=== PATIENT | female | born 1965 | race African-American/Black ===

== ENCOUNTER 2016-12-28 16:28 | Emergency (ER) | payer OTHER ==
[~2016-12-28] VITALS: Ht 162.6 cm; Wt 113.6 kg
[~2016-12-28 16:28] MED LIST: HYDR-3533 PO; IBUP-232 PO; LISI-586 PO; METO50TA PO
[2016-12-28 16:32] VITALS: BP 140/107; PULSE 87; RESP 17; TEMP 98; O2SAT 96
[2016-12-28] MEDS ORDERED: MONT10TA4 PO (17:00)
[2016-12-28] MEDS ORDERED: AMLO5 PO (17:00)
--- NOTE | 2016-12-28 17:01 | PD ---
HPI Chief Complaint: Headache Time Seen by Provider: 16:51 Travel History International Travel<30 days: No Contact w/Intl Traveler<30days: No Traveled to known affect area: No History of Present Illness HPI Patient is a 51-year-old female who presents to ER with c/o of hypertension. Patient reports that she has had history of long-standing hypertension, reports that she follow-up with her primary care doctor yesterday who took her off her of her metoprolol and changed to Norvasc 5 mg. Patient reports that she has been taking Norvasc 5 mg daily since yesterday. Patient reports that during her conversation with her primary care doctor, her primary care doctor reported concerns for possible esophageal cancer. Patient reports that since her discussion about this esophageal cancer, patient was concerned and has been very anxious. Patient reports that she has been having tingling sensation to her arms or legs, patient reports that she feels nervous about her blood pressure as well as her health in general. Patient reports that today she took her blood pressure at home using a small wrist cuff; reports that her blood pressure was 165/135. Patient then went to [facility] and took her blood pressure which was 155/110. Patient reports that she felt she was anxious and came to the emergency room for evaluation. At this time, patient denies any headache or dizziness. Patient denies any vision changes, nausea or vomiting. Patient denies any chest pain or shortness of breath. Patient reports that she just want to have her blood pressure checked and went to find out why she felt tingly sensation all over her body. PFSH Past Medical History Arthritis: Yes Asthma: No Autoimmune Disease: No Heart Rhythm Problems: No Cancer: No Cardiac Catheterization: No Cardiovascular Problems: Yes High Cholesterol: Yes Chemotherapy: No Chest Pain: Yes Congestive Heart Failure: No COPD: No Cerebrovascular Accident: No Diabetes: No Diminished Hearing: No Endocrine: No Fibromyalgia: Yes Gastrointestinal Disorders: No GERD: Yes Genitourinary: No Headaches: Yes Hiatal Hernia: No Hypertension: Yes Immune Disorder: No Implanted Vascular Access Dvce: No Kidney Stones: No Musculoskeletal: No Neurologic: Yes (VERTIGO, FIBROMYALGIA) Psychiatric: No Reproductive: No Respiratory: No Immunizations Current: No Migraines: Yes Myocardial Infarction: No Pneumonia: Yes (CHILDHOOD) Radiation Therapy: No Renal Failure: No Seizures: No Sleep Apnea: No Thyroid Disease: No Ulcer: No ?: Not Menopausal: Yes : 4 Para: 3 Miscarriage: 1 Dilation and Curettage (D&C): Yes Tubal Ligation: Yes Past Surgical History Abdominal Surgery: No AICD: No Arteriovenous Shunt: No Cardiac Surgery: No Section: Yes (X1) Coronary Artery Bypass Graft: No Ear Surgery: No Endocrine Surgery: No Eye Surgery: No Genitourinary Surgery: No Gynecologic Surgery: Yes ( 2000) Insulin Pump: No Joint Replacement: No Neurologic Surgery: No Oral Surgery: No Pacemaker: No Thoracic Surgery: No Other Surgery: Yes Social History Alcohol Use: No Tobacco Use: No Substance Use: No Allergies-Medications (Allergen,Severity, Reaction): Coded Allergies: No Known Allergies (Verified , 12/28/16) Reported Meds & Prescriptions Reported Meds & Active Scripts Active Macrobid (Nitrofurantoin Monoh/Nitrofur Macro) 100 Mg Cap 100 Mg PO BID 10 Days Reported Montelukast (Montelukast Sodium) 10 Mg Tab 10 Mg PO HS Norvasc (Amlodipine Besylate) 5 Mg Tab 5 Mg PO DAILY Review of Systems General / Constitutional: No: Fever, Chills Eyes: No: Visual changes HENT: No: Headaches, Vertigo, Lightheadedness, Sore Throat Cardiovascular: No: Chest Pain or Discomfort Respiratory: No: Shortness of Breath Gastrointestinal: No: Nausea, Vomiting, Diarrhea, Abdominal Pain Genitourinary: No: Dysuria Musculoskeletal: No: Pain Skin: No Rash Neurologic: No: Weakness Psychiatric: Positive: Anxiety, No: Depression Endocrine: No: Polydipsia Hematologic/Lymphatic: No: Easy Bruising Physical Exam Narrative GENERAL: NAD, Nontoxic SKIN: Focused skin assessment warm/dry. HEAD: Atraumatic. Normocephalic. EYES: Pupils equal and round. No scleral icterus. No injection or drainage. ENT: No nasal bleeding or discharge. Mucous membranes pink and moist. NECK: Trachea midline. No JVD. CARDIOVASCULAR: Regular rate and rhythm. No murmur appreciated. RESPIRATORY: No accessory muscle use. Clear to auscultation. Breath sounds equal bilaterally. GASTROINTESTINAL: Abdomen soft, non-tender, nondistended. Hepatic and splenic margins not palpable. MUSCULOSKELETAL: No obvious deformities. No clubbing. No cyanosis. No edema. NEUROLOGICAL: Awake and alert. No obvious cranial nerve deficits. Motor grossly within normal limits. Normal speech. CN 2-12 grossly intact with no neurological deficits PSYCHIATRIC: Patient extremely anxious on exam Data Data Last Documented VS Vital Signs Date Time Temp Pulse Resp B/P Pulse Ox O2 Delivery O2 Flow Rate FiO2 12/28/16 16:32 98.0 87 17 140/107 96 Orders Electrocardiogram (12/28/16 16:52) Basic Metabolic Panel (Bmp) (12/28/16 16:52) Complete Blood Count With Diff (12/28/16 16:52) Ecg Monitoring (12/28/16 16:52) Iv Access Insert/Monitor (12/28/16 16:52) Urinalysis - C+S If Indicated (12/28/16 16:52) Urine Culture (12/28/16 17:50) Nitrofurantoin Monohyd Macrocr (Macrobid (12/28/16 18:30) Labs Laboratory Tests Test 12/28/16 12/28/16 12/28/16 17:44 17:45 17:50 White Blood Count 7.0 TH/MM3 Red Blood Count 4.68 MIL/MM3 Hemoglobin 13.4 GM/DL Hematocrit 40.4 % Mean Corpuscular Volume 86.2 FL Mean Corpuscular Hemoglobin 28.7 PG Mean Corpuscular Hemoglobin 33.3 % Concent Red Cell Distribution Width 13.3 % Platelet Count 243 TH/MM3 Mean Platelet Volume 8.9 FL Neutrophils (%) (Auto) 51.7 % Lymphocytes (%) (Auto) 35.7 % Monocytes (%) (Auto) 7.7 % Eosinophils (%) (Auto) 1.5 % Basophils (%) (Auto) 3.4 % Neutrophils # (Auto) 3.7 TH/MM3 Lymphocytes # (Auto) 2.5 TH/MM3 Monocytes # (Auto) 0.5 TH/MM3 Eosinophils # (Auto) 0.1 TH/MM3 Basophils # (Auto) 0.2 TH/MM3 CBC Comment DIFF FINAL Differential Comment Sodium Level 142 MEQ/L Potassium Level 3.7 MEQ/L Chloride Level 107 MEQ/L Carbon Dioxide Level 28.3 MEQ/L Anion Gap 7 MEQ/L Blood Urea Nitrogen 9 MG/DL Creatinine 0.91 MG/DL Estimat Glomerular Filtration 79 ML/MIN Rate Random Glucose 90 MG/DL Calcium Level 8.6 MG/DL Urine Collection Type CLEAN CATCH Urine Color YELLOW Urine Turbidity CLEAR Urine pH 5.5 Urine Specific Arlee 1.026 Urine Protein TRACE mg/dL Urine Glucose (UA) NEG mg/dL Urine Ketones TRACE mg/dL Urine Occult Blood NEG Urine Nitrite NEG Urine Bilirubin NEG Urine Leukocyte Esterase NEG Urine WBC 0-2 /hpf Urine Squamous Epithelial 0-5 /hpf Cells Urine Bacteria MANY /hpf Microscopic Urinalysis Comment CULTURE INDICATED MDM Medical Decision Making Medical Screen Exam Complete: Yes Emergency Medical Condition: Yes Interpretation(s) EKG at 1720: NSR at 77bpm, qt/qtc: 384/413, nonspecific t wave changes Vital Signs Date Time Temp Pulse Resp B/P Pulse Ox O2 Delivery O2 Flow Rate FiO2 12/28/16 16:32 98.0 87 17 140/107 96 Differential Diagnosis Accelerated hypertension, anxiety reaction, electrolyte abnormality Narrative Course Patient is a 51-year-old female who presents to emergency room with complaints of hypertension. She reports that she saw her primary care doctor yesterday for a well checkup and had her blood pressure medications changed from Metoprolol to Norvasc 5 mg which she started taking yesterday. Patient reports that they also discussed possibilities of esophageal cancer, reports that she felt extremely anxious about this. Her to her primary care doctor sent her for a bunch of tests which she has not gotten yet. Patient reports that since yesterday, she has been having tingling sensations to her arms or legs and whole for body. Reports that she has been checking her blood pressure with a wrist cuff which she has at home Overall, patient extremely anxious on exam. Patient complaining of tingling sensation to her arms and her legs, reports that everything started after her visit with her PCP. I do think that her symptoms are associated to anxiety reaction as patient is fearful of having esophageal cancer. As per pt's blood pressure, she was just started on Norvasc 5mg, her blood pressure here is 168/98, discussed with patient that anxiety can elevate blood pressure as well. Plan to obtain labs and ekg and evaluate for end organ damage. Ultimately, plan to have patient continue all her medications and follow up with her pcp for blood pressure re-check on Friday. Laboratory Tests Test 12/28/16 12/28/16 12/28/16 17:44 17:45 17:50 White Blood Count 7.0 TH/MM3 (4.0-11.0) Red Blood Count 4.68 MIL/MM3 (4.00-5.30) Hemoglobin 13.4 GM/DL (11.6-15.3) Hematocrit 40.4 % (35.0-46.0) Mean Corpuscular Volume 86.2 FL (80.0-100.0) Mean Corpuscular Hemoglobin 28.7 PG (27.0-34.0) Mean Corpuscular Hemoglobin 33.3 % Concent (32.0-36.0) Red Cell Distribution Width 13.3 % (11.6-17.2) Platelet Count 243 TH/MM3 (150-450) Mean Platelet Volume 8.9 FL (7.0-11.0) Neutrophils (%) (Auto) 51.7 % (16.0-70.0) Lymphocytes (%) (Auto) 35.7 % (9.0-44.0) Monocytes (%) (Auto) 7.7 % (0.0-8.0) Eosinophils (%) (Auto) 1.5 % (0.0-4.0) Basophils (%) (Auto) 3.4 % (0.0-2.0) Neutrophils # (Auto) 3.7 TH/MM3 (1.8-7.7) Lymphocytes # (Auto) 2.5 TH/MM3 (1.0-4.8) Monocytes # (Auto) 0.5 TH/MM3 (0-0.9) Eosinophils # (Auto) 0.1 TH/MM3 (0-0.4) Basophils # (Auto) 0.2 TH/MM3 (0-0.2) CBC Comment DIFF FINAL Differential Comment Sodium Level 142 MEQ/L (136-145) Potassium Level 3.7 MEQ/L (3.5-5.1) Chloride Level 107 MEQ/L (98-107) Carbon Dioxide Level 28.3 MEQ/L (21.0-32.0) Anion Gap 7 MEQ/L (5-15) Blood Urea Nitrogen 9 MG/DL (7-18) Creatinine 0.91 MG/DL (0.50-1.00) Estimat Glomerular Filtration 79 ML/MIN (>89) Rate Random Glucose 90 MG/DL (74-106) Calcium Level 8.6 MG/DL (8.5-10.1) Urine Collection Type CLEAN CATCH Urine Color YELLOW (YELLW/STRAW) Urine Turbidity CLEAR (CLEAR) Urine pH 5.5 (5.0-8.5) Urine Specific Arlee 1.026 (1.002-1.035) Urine Protein TRACE mg/dL (NEG-TRACE) Urine Glucose (UA) NEG mg/dL (NEG) Urine Ketones TRACE mg/dL (NEG) Urine Occult Blood NEG (NEG) Urine Nitrite NEG (NEG) Urine Bilirubin NEG (NEG) Urine Leukocyte Esterase NEG (NEG) Urine WBC 0-2 /hpf (0-5) Urine Squamous Epithelial 0-5 /hpf (0-5) Cells Urine Bacteria MANY /hpf (NONE) Microscopic Urinalysis Comment CULTURE INDICATED Patient with urinary urgency, will treat for UTI. I reviewed all labs and studies with patient in detail. Patient will follow-up with primary care doctor and have a repeat blood pressure done on Friday. Signs and symptoms of when to return to emergency room as needed patient in detail. Diagnosis Primary Impression: Hypertension Qualified Code: I10 - Essential hypertension Additional Impressions: Anxiety UTI (urinary tract infection) Qualified Code: N30.00 - Acute cystitis without hematuria Patient Instructions: General Instructions Additional Instructions: Please follow-up with your primary care doctor in 2-3 days Return to the emergency room as needed Please take all medications as prescribed Return to emergency room if symptoms worsen or progress Med/Other Pt SpecificInfo: Prescription(s) given Scripts Nitrofurantoin Monohydrate Macrocrystals (Macrobid)100 Mg [id number] Mg PO BID 10 Days Ref 0 Prov:Becky Freire DO 12/28/16 Disposition: 01 DISCHARGE HOME Condition: Stable Becky Freire DO Dec 28, 2016 17:01
[2016-12-28 18:03] LABS: AUTOMATED NEUTROPHIL # 3.7 TH/MM3 (1.8-7.7); BASOPHIL # 0.2 TH/MM3 (0-0.2); BASOPHIL % 3.4 % (0.0-2.0); EOSINOPHIL # 0.1 TH/MM3 (0-0.4); EOSINOPHIL % 1.5 % (0.0-4.0); HEMATOCRIT 40.4 % (35.0-46.0); LYMPH % 35.7 % (9.0-44.0); LYMPHOCYTE # 2.5 TH/MM3 (1.0-4.8); MEAN CELL VOLUME 86.2 FL (80.0-100.0); MEAN CORPUSCULAR HEMOGLOBIN 28.7 PG (27.0-34.0); MEAN CORPUSCULAR HGB CONC 33.3 % (32.0-36.0); MONO % 7.7 % (0.0-8.0); NEUT % 51.7 % (16.0-70.0); PLATELET COUNT 243 TH/MM3 (150-450); RED BLOOD COUNT 4.68 MIL/MM3 (4.00-5.30); RED CELL DISTRIBUTION WIDTH 13.3 % (11.6-17.2)
[2016-12-28 18:04] LABS: HEMO FLAGS DIFF FINAL
[2016-12-28 18:09] LABS: POTASSIUM 3.7 MEQ/L (3.5-5.1)
[2016-12-28 18:12] LABS: BICARBONATE 28.3 MEQ/L (21.0-32.0)
[2016-12-28 18:12] LABS: BLOOD, URINE NEG (NEG); GLUCOSE,URINE NEG (NEG); KETONE, URINE TRACE mg/dL (NEG); NITRITE,URINE NEG (NEG); PH, URINE 5.5 (5.0-8.5)
[2016-12-28 18:15] LABS: METHOD OF COLLECTION CLEAN CATCH; URINE COLOR YELLOW (YELLW/STRAW)
[2016-12-28 18:16] LABS: BACTERIA, URINE MANY /hpf; COMMENT (UR) CULTURE INDICATED; CULTURE IF INDICATED CULTURE INDICATED; SQUAMOUS EPITHELIAL CELL URINE 0-5 /hpf (0-5); WBC, URINE 0-2 /hpf (0-5)
[2016-12-28] MEDS ORDERED: MACR100C2 PO (18:27)
[2016-12-28] MEDS ORDERED: NITROFURANTOIN MONOHYD MACROCR 100 MG CAP PO ONE (18:30)
[2016-12-28 18:47] VITALS: BP 162/90
--- NOTE | 2016-12-29 14:42 | EKG ---
Date Performed: 12/28/2016 Time Performed: 17:20:02 PTAGE: 51 years EKG: Sinus rhythm Possible septal infarct - age undetermined Inferior T wave changes are nonspecific Q wave V2 is new Compared to previous tracing Clinical correlation is recommended Abnormal ECG PREVIOUS TRACING : 10/27/2014 19.52 DOCTOR: Joshua Cronin Interpretating Date/Time 12/29/2016 14:40:22
== END 2016-12-28 18:48 | disposition home or self-care (01) ==
LOC: PHED 16:28
DX: I10 Essential (primary) hypertension (principal); E78.00 Pure hypercholesterolemia, unspecified; R94.31 Abnormal electrocardiogram [ECG] [EKG]
CPT/HCPCS: 80048; 81001; 85025; 87086; 93005

== ENCOUNTER 2017-01-18 19:37 | Emergency (ER) | payer OTHER ==
[~2017-01-18] VITALS: Ht 162.6 cm; Wt 112.9 kg
[~2017-01-18 19:37] MED LIST changes: +AMLO5 PO; -HYDR-3533 PO; -IBUP-232 PO; -LISI-586 PO; +MACR100C2 PO; -METO50TA PO; +MONT10TA4 PO
[2017-01-18 20:01] VITALS: O2SAT 97
[2017-01-18] MEDS ORDERED: diphenhydrAMINE HCL 50 MG/ML VIAL IV PUSH ONE (20:15)
[2017-01-18] MEDS ORDERED: methylPREDNISolone SOD SUCC 125 MG/2 ML VIAL IV PUSH ONE (20:15)
[2017-01-18 20:21] VITALS: BP 157/97; PULSE 71; RESP 18; O2SAT 97
[2017-01-18] MEDS ORDERED: LISI10TA3 PO (20:21)
[2017-01-18] MEDS ORDERED: ATOR40TA16 PO (20:21)
[2017-01-18] MEDS ORDERED: VITA10002 PO (20:21)
[2017-01-18] MEDS ORDERED: VITA10003 PO (20:21)
[2017-01-18] MEDS ORDERED: METF500T PO (20:21)
[2017-01-18] MEDS ORDERED: MULT1TAB84 PO (20:21)
[2017-01-18] MEDS ORDERED: LORA10TA PO (21:04)
[2017-01-18] MEDS ORDERED: PRED-503 PO (21:04)
--- NOTE | 2017-01-18 21:04 | PD ---
HPI Chief Complaint: Allergic/Adverse Reaction Time Seen by Provider: 20:05 Travel History International Travel<30 days: No Contact w/Intl Traveler<30days: No Traveled to known affect area: No History of Present Illness HPI So 51 year-old woman who presents to the emergency department complaining of concern for allergic reaction. She was eating or at a pizza when she started getting swelling of her lower lip. She's never had similar symptoms. No history of allergies anaphylaxis. States initially shielded tickle in her throat but this is now gone. No rash or urticaria. No abdominal pain or nausea. No other complaints. This started about 30 minutes prior to arrival. She is on lisinopril. History Past Medical History Narrative Medical Hypertension, on lisinopril Prediabetes Hyperlipidemia Influenza Vaccination: No Menopausal: Yes : 4 Para: 3 Dilation and Curettage (D&C): Yes Social History Alcohol Use: No Tobacco Use: No Allergies-Medications (Allergen,Severity, Reaction): Coded Allergies: No Known Allergies (Verified , 01/18/17) Reported Meds & Prescriptions Reported Meds & Active Scripts Active Reported Metformin (Metformin HCl) 500 Mg Tab 500 Mg PO DAILY With a meal Atorvastatin (Atorvastatin Calcium) 40 Mg Tab 40 Mg PO DAILY Multivitamin Adults (Multiple Vitamins W/ Minerals) 1 Tab 1 Tab PO DAILY Vitamin D-3 (Cholecalciferol) 1,000 Unit Tab 1,000 Units PO DAILY Vitamin B-12 (Cyanocobalamin) 1,000 Mcg Tab 1,000 Mcg PO DAILY Lisinopril 10 Mg Tab 10 Mg PO DAILY Montelukast (Montelukast Sodium) 10 Mg Tab 10 Mg PO HS Norvasc (Amlodipine Besylate) 5 Mg Tab 5 Mg PO DAILY Review of Systems Except as stated in HPI: all other systems reviewed are Neg Physical Exam Narrative GENERAL: Well-appearing 51 year-old woman, no acute distress. SKIN: Focused skin assessment warm/dry. HEAD: Atraumatic. Normocephalic. EYES: Pupils equal and round. No scleral icterus. No injection or drainage. ENT: No nasal bleeding or discharge. Mucous membranes pink and moist. Some asymmetric edema in the lower lip. Tongue is normal. Throat is normal. NECK: Trachea midline. No JVD. CARDIOVASCULAR: Regular rate and rhythm. No murmur appreciated. RESPIRATORY: No accessory muscle use. Clear to auscultation. Breath sounds equal bilaterally. GASTROINTESTINAL: Abdomen soft, non-tender, nondistended. Hepatic and splenic margins not palpable. MUSCULOSKELETAL: No obvious deformities. Data Data Last Documented VS Vital Signs Date Time Temp Pulse Resp B/P Pulse Ox O2 Delivery O2 Flow Rate FiO2 01/18/17 20:21 71 18 157/97 97 Room Air Orders Iv Access Insert/Monitor (01/18/17 20:13) Methylprednisolone So Succ Inj (Solumedr (01/18/17 20:15) Diphenhydramine Inj (Benadryl Inj) (01/18/17 20:15) MDM Medical Decision Making Medical Screen Exam Complete: Yes Emergency Medical Condition: Yes Differential Diagnosis Allergic reaction, angioedema, infection, other Narrative Course Medical decision making 51 year-old woman presents emergent department with angioedema. Started just recently. She is on lisinopril. No other evidence of allergic reaction. We' ll treat steroids antihistamines. Given that it just started, even though it only involves the lip, we'll watch her for couple hours in the emergency department. Discharge after. Diagnosis Primary Impression: Angioedema Additional Instructions: Stop taking her lisinopril. Follow-up with her primary doctor for adjustment of your blood pressure medications. Take prednisone and loratadine for the next 3 days. Return to the emergency department immediately for any worsening swelling, any trouble breathing or any trouble swallowing, call 911 if you're experiencing any trouble breathing at all. Med/Other Pt SpecificInfo: Prescription(s) given Scripts Loratadine 10 Mg Tab10 Mg PO DAILY 3 Days Ref 0 Prov:Jose Fay MD 01/18/17 Prednisone (Deltasone)20 Mg Tab20 Mg PO BID 3 Days Prov:Jose Fay MD 01/18/17 Jose Fay MD January 18, 2017 21:04
[2017-01-18 21:10] VITALS: BP 141/88; PULSE 67; RESP 17; O2SAT 99
[2017-01-18 22:13] VITALS: BP 144/92; TEMP 98.9
== END 2017-01-18 22:11 | disposition home or self-care (01) ==
LOC: PHED 19:37
DX: T78.3XXA Angioneurotic edema, initial encounter (principal); I10 Essential (primary) hypertension; R73.03 Prediabetes; E78.5 Hyperlipidemia, unspecified
CPT/HCPCS: 96374; 96375; 99284; J1200; J2930

== ENCOUNTER 2017-05-02 15:22 | Emergency (ER) | payer OTHER ==
[~2017-05-02] VITALS: Ht 162.6 cm; Wt 109.5 kg
[~2017-05-02 15:22] MED LIST changes: +ATOR40TA16 PO; +LISI10TA3 PO; +LORA10TA PO; -MACR100C2 PO; +METF500T PO; +MULT1TAB84 PO; +PRED-503 PO; +VITA10002 PO; +VITA10003 PO
[2017-05-02 15:30] VITALS: BP 145/87; PULSE 90; RESP 12; TEMP 97.9; O2SAT 99
[2017-05-02] MEDS ORDERED: PROCHLORPERAZINE INJ 10 MG/2 ML VIAL IM ONE (16:15)
[2017-05-02] MEDS ORDERED: KETOROLAC TROMETHAMINE 60 MG/2 ML (IM) VIAL IM ONE (16:15)
--- NOTE | 2017-05-02 16:21 | PD ---
HPI Chief Complaint: headache Time Seen by Provider: 16:02 Travel History International Travel<30 days: No Contact w/Intl Traveler<30days: No Traveled to known affect area: No History of Present Illness HPI c/o gradual headache, 7/10, posterior scalp area, pressure/throbbing nature that then becomes generalized...states that she suffers from mild chronic headaches dx as tension from grinding her teeth at night. today is similar in sensation but higher intensity.. denies any fever/neck stiffness/photophobia/n/v /d/cp/abdpain all: angioedema to lisinopril pmhx: htn, hyperlipidemia, borderline diabetic PFSH Past Medical History Arthritis: Yes Asthma: No Autoimmune Disease: No Heart Rhythm Problems: No Cancer: No Cardiac Catheterization: No Cardiovascular Problems: Yes High Cholesterol: Yes Chemotherapy: No Chest Pain: Yes Congestive Heart Failure: No COPD: No Cerebrovascular Accident: No Diabetes: Yes Diminished Hearing: No Endocrine: No Fibromyalgia: Yes Gastrointestinal Disorders: No GERD: Yes Genitourinary: No Headaches: Yes Hiatal Hernia: No Hypertension: Yes Immune Disorder: No Implanted Vascular Access Dvce: No Kidney Stones: No Musculoskeletal: Yes (back problems) Neurologic: Yes (VERTIGO, FIBROMYALGIA) Psychiatric: No Reproductive: No Respiratory: No Immunizations Current: No Migraines: Yes Myocardial Infarction: No Pneumonia: Yes (CHILDHOOD) Radiation Therapy: No Renal Failure: No Seizures: No Sleep Apnea: No Thyroid Disease: No Ulcer: No Menopausal: Yes : 4 Para: 3 Miscarriage: 1 Dilation and Curettage (D&C): Yes Tubal Ligation: Yes Past Surgical History Abdominal Surgery: No AICD: No Arteriovenous Shunt: No Cardiac Surgery: No Section: Yes (X1) Coronary Artery Bypass Graft: No Ear Surgery: No Endocrine Surgery: No Eye Surgery: No Genitourinary Surgery: No Gynecologic Surgery: Yes ( 2000) Insulin Pump: No Joint Replacement: No Neurologic Surgery: No Oral Surgery: No Pacemaker: No Thoracic Surgery: No Other Surgery: Yes Social History Alcohol Use: No Tobacco Use: No Substance Use: No Allergies-Medications (Allergen,Severity, Reaction): Coded Allergies: lisinopril (Unverified Allergy, Severe, 05/02/17) angioedema Reported Meds & Prescriptions Reported Meds & Active Scripts Active Reported Triamcinolone Topical 0.025 % Oint 1 Applic TOPICAL BID Metformin (Metformin HCl) 500 Mg Tab 500 Mg PO BID With a meal Atorvastatin (Atorvastatin Calcium) 40 Mg Tab 40 Mg PO DAILY Montelukast (Montelukast Sodium) 10 Mg Tab 10 Mg PO HS Norvasc (Amlodipine Besylate) 5 Mg Tab 5 Mg PO DAILY Review of Systems Except as stated in HPI: all other systems reviewed are Neg HENT: Positive: Headaches Physical Exam Narrative GENERAL: SKIN: Warm and dry. HEAD: Atraumatic. Normocephalic. EYES: Pupils equal and round. No scleral icterus. No injection or drainage. ENT: No nasal bleeding or discharge. Mucous membranes pink and moist. NECK: Trachea midline. No JVD. CARDIOVASCULAR: Regular rate and rhythm. RESPIRATORY: No accessory muscle use. Clear to auscultation. Breath sounds equal bilaterally. GASTROINTESTINAL: Abdomen soft, non-tender, nondistended. MUSCULOSKELETAL: Extremities without clubbing, cyanosis, or edema. No obvious deformities. NEUROLOGICAL: Awake and alert. No obvious cranial nerve deficits. Motor grossly within normal limits. Five out of 5 muscle strength in the arms and legs. Normal speech. PSYCHIATRIC: Appropriate mood and affect; insight and judgment normal. Data Data Last Documented VS Vital Signs Date Time Temp Pulse Resp B/P (MAP) Pulse Ox O2 Delivery O2 Flow Rate FiO2 05/02/17 15:30 97.9 90 12 145/87 (106) 99 Room Air Orders Orders Prochlorperazine Inj (Compazine Inj) (05/02/17 16:15) Ketorolac Inj (Toradol Inj) (05/02/17 16:15) MDM Medical Decision Making Medical Screen Exam Complete: Yes Emergency Medical Condition: Yes Medical Record Reviewed: Yes Differential Diagnosis tension ray v sinusitis Narrative Course clinically patient has no ttp over sinus regions, currently during exam, pressing on pressure points on scalp actually cause great relief making it more likely that cause is tension ray. ct from 2011 reviewed and no e/o aneurysm at that point, additionally no trauma, no blunt head trauma. Diagnosis Primary Impression: Acute tension-type headache Qualified Codes: G44.209 - Tension-type headache, unspecified, not intractable Patient Instructions: General Instructions, Tension Headache (ED) Scripts Cyclobenzaprine (Flexeril) 10 Mg Tab 10 MG PO TID for Muscle Spasm, #21 TAB 0 Refills Prov: Layton Shelley MD 05/02/[address] (Naproxen EC) 375 Mg Tabdr 375 MG PO BID, #20 TAB 0 Refills Prov: Layton Shelley MD 05/02/17 Disposition: 01 DISCHARGE HOME Condition: Stable Layton Shelley MD May 02, 2017 16:21
[2017-05-02] MEDS ORDERED: TRIA0.022 TOPICAL (16:25)
[2017-05-02] MEDS ORDERED: NAPR-239 PO (17:52)
[2017-05-02] MEDS ORDERED: CYCL1TAB29 PO (17:52)
== END 2017-05-02 18:57 | disposition home or self-care (01) ==
LOC: PHED 15:22
DX: G44.209 Tension-type headache, unspecified, not intractable (principal); M19.90 Unspecified osteoarthritis, unspecified site; I10 Essential (primary) hypertension; E78.00 Pure hypercholesterolemia, unspecified; E11.9 Type 2 diabetes mellitus without complications; M79.7 Fibromyalgia; K21.9 Gastro-esophageal reflux disease without esophagitis
CPT/HCPCS: 96372; 99284; J0780; J1885

== ENCOUNTER 2018-01-15 15:55 | Emergency (ER) | payer OTHER ==
[~2018-01-15] VITALS: Ht 162.6 cm; Wt 107.0 kg
[~2018-01-15 15:55] MED LIST changes: +CYCL10TA PO; -LISI10TA3 PO; -LORA10TA PO; -MULT1TAB84 PO; +NAPR375T4 PO; -PRED-503 PO; +TRIA0.022 TOPICAL; -VITA10002 PO; -VITA10003 PO
[2018-01-15 16:07] VITALS: BP 145/91; PULSE 71; RESP 18; TEMP 97.7; O2SAT 98
--- NOTE | 2018-01-15 16:17 | PD ---
HPI Chief Complaint: Headache Time Seen by Provider: 16:13 Travel History International Travel<30 days: No Contact w/Intl Traveler<30days: No Traveled to known affect area: No History of Present Illness HPI Patient currently has no headache. Patient was seen in April 2017. Patient continues to have this recurrent headache, that seems to have been going on now for about a year and a half, when it does occur the rate of the pain is anywhere between 3 out of 10 to as high as a 10 out of 10. Patient is concerned that there may be something worse going on despite the fact that she has already been diagnosed in the past with migraine. However patient is not on migraine medication currently. Patient feels her normal self currently. Patient denies any alleviating or aggravating factors when she does have the headache. Patient denies any associated factors such as fever, rash, neck pain , chest pain, back pain, flank pain nausea vomiting diarrhea, cough, runny nose , sore throat or abdominal pain. States allergy to lisinopril Past medical history significant for vertigo, fibromyalgia, migraine, hypercholesterolemia, hypertension, pneumonia, GERD, tubal ligation, D&C, C- section 1, , diabetes, claustrophobia PFSH Past Medical History Arthritis: Yes Asthma: No Autoimmune Disease: No Heart Rhythm Problems: No Cancer: No Cardiac Catheterization: No Cardiovascular Problems: Yes High Cholesterol: Yes Chemotherapy: No Chest Pain: Yes Congestive Heart Failure: No COPD: No Cerebrovascular Accident: No Diabetes: Yes Diminished Hearing: No Endocrine: No Fibromyalgia: Yes Gastrointestinal Disorders: No GERD: Yes Genitourinary: No Headaches: Yes Hiatal Hernia: No Hypertension: Yes Immune Disorder: No Implanted Vascular Access Dvce: No Kidney Stones: No Musculoskeletal: Yes (back problems) Neurologic: Yes (VERTIGO, FIBROMYALGIA) Psychiatric: No Reproductive: No Respiratory: No Immunizations Current: No Migraines: Yes Myocardial Infarction: No Pneumonia: Yes (CHILDHOOD) Radiation Therapy: No Renal Failure: No Seizures: No Sleep Apnea: No Thyroid Disease: No Ulcer: No ?: Not Menopausal: Yes : 4 Para: 3 Miscarriage: 1 Dilation and Curettage (D&C): Yes Tubal Ligation: Yes Past Surgical History Abdominal Surgery: No AICD: No Arteriovenous Shunt: No Cardiac Surgery: No Section: Yes (X1) Coronary Artery Bypass Graft: No Ear Surgery: No Endocrine Surgery: No Eye Surgery: No Genitourinary Surgery: No Gynecologic Surgery: Yes ( 2000) Insulin Pump: No Joint Replacement: No Neurologic Surgery: No Oral Surgery: No Pacemaker: No Thoracic Surgery: No Other Surgery: Yes Social History Alcohol Use: No Tobacco Use: No Substance Use: No Allergies-Medications (Allergen,Severity, Reaction): Coded Allergies: lisinopril (Unverified Allergy, Severe, 01/15/18) angioedema Reported Meds & Prescriptions Reported Meds & Active Scripts Active Ultram (Tramadol HCl) 50 Mg Tab 50 Mg PO Q6H PRN Baclofen 20 Mg Tab 20 Mg PO TID Flexeril (Cyclobenzaprine HCl) 10 Mg Tab 10 Mg PO TID Naproxen EC (Naproxen) 375 Mg Tabdr 375 Mg PO BID Reported Metformin (Metformin HCl) 500 Mg Tab 500 Mg PO BID With a meal Atorvastatin (Atorvastatin Calcium) 40 Mg Tab 40 Mg PO DAILY Montelukast (Montelukast Sodium) 10 Mg Tab 10 Mg PO HS Norvasc (Amlodipine Besylate) 5 Mg Tab 5 Mg PO DAILY Review of Systems General / Constitutional: No: Fever Eyes: No: Visual changes HENT: Positive: Headaches Cardiovascular: No: Chest Pain or Discomfort Respiratory: No: Shortness of Breath Gastrointestinal: No: Abdominal Pain Genitourinary: No: Dysuria Musculoskeletal: No: Pain Skin: No Rash Neurologic: No: Weakness Psychiatric: No: Depression Endocrine: No: Polydipsia Hematologic/Lymphatic: No: Easy Bruising Physical Exam Narrative GENERAL: SKIN: Warm and dry. HEAD: Atraumatic. Normocephalic. EYES: Pupils equal and round. No scleral icterus. No injection or drainage. ENT: No nasal bleeding or discharge. Mucous membranes pink and moist. NECK: Trachea midline. No JVD. CARDIOVASCULAR: Regular rate and rhythm. RESPIRATORY: No accessory muscle use. Clear to auscultation. Breath sounds equal bilaterally. GASTROINTESTINAL: Abdomen soft, non-tender, nondistended. MUSCULOSKELETAL: Extremities without clubbing, cyanosis, or edema. No obvious deformities. NEUROLOGICAL: Awake and alert. No obvious cranial nerve deficits. Motor grossly within normal limits. Five out of 5 muscle strength in the arms and legs. Normal speech. PSYCHIATRIC: Appropriate mood and affect; insight and judgment normal. Data Data Last Documented VS Vital Signs Date Time Temp Pulse Resp B/P (MAP) Pulse Ox O2 Delivery O2 Flow Rate FiO2 01/15/18 18:21 80 16 143/81 (101) 100 01/15/18 16:18 Room Air 01/15/18 16:[address] Brain W/O Iv Contrast(Rout) (01/15/18 16:17) Ed Discharge Order (01/15/18 18:06) MDM Medical Decision Making Medical Screen Exam Complete: Yes Emergency Medical Condition: Yes Medical Record Reviewed: Yes Differential Diagnosis Sinus headache versus tension headache versus occipital neuralgia versus intracranial hemorrhage Narrative Course CT read by radiologist as normal examination Diagnosis Primary Impression: Recurrent headache Referrals: Jose Hanson MD PhD For further evaluation of your recurrent headache Patient Instructions: Acute Headache (ED), General Instructions Scripts Tramadol (Ultram) 50 Mg Tab 50 MG PO Q6H Y for PAIN, #12 TAB 0 Refills Prov: Layton Shelley MD 01/15/18 Baclofen (Baclofen) 20 Mg Tab 20 MG PO TID for Muscle Spasm, #14 TAB 0 Refills Prov: Layton Shelley MD 01/15/18 Disposition: 01 DISCHARGE HOME Condition: Stable Layton Shelley MD January 15, 2018 16:17
[2018-01-15] MEDS ORDERED: TRAM50 PO (16:46)
[2018-01-15] MEDS ORDERED: BACL20TA PO (16:46)
--- NOTE | 2018-01-15 17:54 | RADRPT ---
EXAM DATE/TIME: 01/15/2018 17:35 [facility] COMPARISON: No previous studies available for comparison. INDICATIONS : Cephalgia. RADIATION DOSE: 57.81 CTDIvol (mGy) MEDICAL HISTORY : Cardiovascular disease. Hypertension. SURGICAL HISTORY : Tubal ligation. ENCOUNTER: Initial ACUITY: 2 days PAIN SCALE: 8/10 LOCATION: cranial TECHNIQUE: Multiple contiguous axial images were obtained of the head. Using automated exposure control and adj ustment of the mA and/or kV according to patient size, radiation dose was kept as low as reasonably a chievable to obtain optimal diagnostic quality images. DICOM format image data is available electro nically for review and comparison. FINDINGS: CEREBRUM: The ventricles are normal for age. No evidence of midline shift, mass lesion, hemorrhage or acute in farction. No extra-axial fluid collections are seen. POSTERIOR FOSSA: The cerebellum and brainstem are intact. The 4th ventricle is midline. The cerebellopontine angle i s unremarkable. EXTRACRANIAL: The visualized portion of the orbits is intact. SKULL: The calvaria is intact. No evidence of skull fracture. CONCLUSION: Normal examination. Justin Simental MD on January 15, 2018 at 17:51 Board Certified Radiologist. This report was verified electronically.
[2018-01-15 18:21] VITALS: BP 143/81
== END 2018-01-15 18:22 | disposition home or self-care (01) ==
LOC: PHED 15:55
DX: R51 Headache (principal); M79.7 Fibromyalgia; E78.00 Pure hypercholesterolemia, unspecified; I10 Essential (primary) hypertension; K21.9 Gastro-esophageal reflux disease without esophagitis; E11.9 Type 2 diabetes mellitus without complications; F40.240 Claustrophobia; M19.90 Unspecified osteoarthritis, unspecified site; Z79.899 Other long term (current) drug therapy
CPT/HCPCS: 70450; 99283